=== PATIENT | male | born 1945 ===

== ENCOUNTER 2018-07-05 19:30 | Emergency (ER) | payer SELFPAY ==
--- NOTE | 2018-07-05 20:08 | RAD ---
XR Wrist 3 Rt View STANDARD History: [Fall. Pain.] Comparison: None. Findings: Intra-articular distal radius fracture with dorsal angulation and displacement. There is al so fracture through the tip of the styloid process. The proximal pole of scaphoid is not well evaluated. Plate-screw fixation hardware seen in the distal radius and ulna, proximal to the fractures. Impression: Intra-articular distal radius fracture as described. Proximal pole of the scaphoid is not well seen. Dedicated scaphoid views are recommended. There is also a fracture of the tip of the styloid process of the ulna.
--- NOTE | 2018-07-05 20:09 | RAD ---
XR Forearm Rt 2 View STANDARD History: [Pain] Comparison: None. Findings: Intra-articular distal radius fracture with dorsal angulation and displacement. Severe soft tissue swelling. Plate and screw fixation of the distal radius and ulna are present, proximal to the fractures. Elbow appears to be intact. Impression: Intra-articular distal radius fracture with dorsal displacement and angulation along with a fracture to the tip of the ulnar styloid.
[2018-07-05] MEDS ORDERED: Lidocaine 1% w/Epinephrine 1:100K 20 ML VIAL ONE (20:56)
--- NOTE | 2018-07-05 21:04 | RAD ---
XR Wrist 3 Rt View STANDARD History: [Fall] Comparison: Wrist same day Findings: Similar appearance intra-articular distal radius fracture. The scaphoid appears normal. Fra cture through the tip of the ulnar styloid. Impression: Intact scaphoid.
== END 2018-07-05 22:32 | disposition home or self-care (01) ==
LOC: ERS 19:30
DX: S52.501A Unspecified fracture of the lower end of right radius, initial encounter for closed fracture (principal); S52.611A Displaced fracture of right ulna styloid process, initial encounter for closed fracture; W10.9XXA Fall (on) (from) unspecified stairs and steps, initial encounter
CPT/HCPCS: 25605; J2001